=== PATIENT | male | born 1970 | race Two or more races ===

== ENCOUNTER 2016-10-27 14:32 | Inpatient (IN) | payer OTHER ==
[2016-10-27 16:18] VITALS: BMI 31.9
--- NOTE | 2016-10-27 18:00 | HP ---
CIWA Score - CIWA Score Nausea/Vomitin Muscle Tremors: 3 Anxiety: 3 Agitation: 3 Paroxysmal Sweats: 1-Minimal Palms Moist Orientation: 0-Oriented Tacttile Disturbances: 2-Mild Itch/Numbness/Burn Auditory Disturbances: 2-Mild Harshness/Frighten Visual Disturbances: 2-Mild Sensitivity Headache: 2-Mild CIWA-Ar Total Score: 21 Admission ROS BHS - HPI Chief Complaint: i need help to stop drinking alcohol,xanax,heroin abused Allergies/Adverse Reactions: Allergies Allergy/AdvReac Type Severity Reaction Status Date / Time No Known Allergies Allergy Verified 10/27/16 17:49 History of Present Illness: this 46 years old male with alcohol,xanax dependence,withdrawal symptom,last detox 06/05 [facility] mmtp type 1 dm htn asthma postitve ppd related multiple admissions to detox longest period of sobriety 10 years Exam Limitations: No Limitations - Ebola screening Have you traveled outside of the country in the last 21 days: No Have you been sick,other than usual withdrawal symptoms: No - Review of Systems Constitutional: Loss of Appetite, Malaise, Night Sweats, Changes in sleep EENT: reports: Nose Congestion Respiratory: reports: No Symptoms reported Cardiac: reports: Palpitations GI: reports: Nausea, Poor Appetite, Abdominal cramping : reports: No Symptoms Reported Musculoskeletal: reports: Back Pain, Joint Pain, Muscle Pain Integumentary: reports: Dryness Neuro: reports: Headache, Tremors Endocrine: reports: No Symptoms Reported Hematology: reports: No Symptoms Reported Psychiatric: reports: Agitated, Anxious, other (bipolar disorder) Patient History - Patient Medical History Hx Anemia: No Hx Asthma: Yes (on albuterol inhaler) Hx Chronic Obstructive Pulmonary Disease (COPD): No Hx Cancer: No Hx Cardiac Disorders: No Hx Congestive Heart Failure: No Hx Hypertension: No Hx Hypercholesterolemia: No Hx Pacemaker: No HX Cerebrovascular Accident: No Hx Seizures: No Hx Dementia: No Hx Diabetes: Yes (tyoe 1 dm) Hx Gastrointestinal Disorders: No Hx Liver Disease: No Hx Genitourinary Disorders: No Hx Sexually Transmitted Disorders: No Hx Renal Disease (ESRD): No Hx Thyroid Disease: No Hx Human Immunodeficiency Virus (HIV): No (last 06/05 negative) Hx Hepatitis C: No Hx Depression: No Hx Suicide Attempt: Yes (16 years old) Hx Bipolar Disorder: Yes Hx Schizophrenia: No Other Medical History: no suicidal,no homicidal - Patient Surgical History Past Surgical History: Yes Hx Neurologic Surgery: No Hx Cataract Extraction: No Hx Cardiac Surgery: No Hx Lung Surgery: No Hx Breast Surgery: No Hx Breast Biopsy: No Hx Abdominal Surgery: No Hx Appendectomy: No Hx Cholecystectomy: No Hx Genitourinary Surgery: No Hx Orthopedic Surgery: Yes (left knee in 2010) Anesthesia Reaction: No - PPD History Previous Implant?: Yes Documented Results: Positive w/proof PPD to be Administered?: No - Smoking Cessation Smoking history: Former smoker Have you smoked in the past 12 months: No Aproximately how many cigarettes per day: 0 If you are a former smoker, when did you quit?: 2011 Cigars Per Day: 0 Hx Chewing Tobacco Use: No Initiated information on smoking cessation: Yes 'Breaking Loose' booklet given: 10/27/16 - Substance & Tx. History Hx Alcohol Use: Yes Hx Substance Use: Yes Substance Use Type: Alcohol, Tranquilizers Hx Substance Use Treatment: Yes (last [facility] in 06/05) - Substances Abused Alcohol Route: Oral Frequency: Daily Amount used: 1 pint dottie or vodka Age of first use: 11 Date of Last Use: 10/26/16 Alprazolam (Xanax) Route: Oral Frequency: Daily Amount used: 4mg Age of first use: 11 Date of Last Use: 10/26/16 Heroin Route: Inhalation Frequency: Daily Amount used: 10 bags Age of first use: 11 Date of Last Use: 10/26/16 Family Disease History - Family Disease History Family Disease History: Diabetes: Grandparent, Brother, Other: Father (hiv ), Mother (hiv ) Admission Physical Exam S - Vital Signs Vital Signs: Vital Signs - 24 hr 10/27/16 16:16 Temperature 97.1 F L Pulse Rate 92 H Respiratory 20 Rate Blood Pressure 159/108 - Physical General Appearance: Yes: Moderate Distress, Tremorous, Irritable, Sweating, Anxious HEENTM: Yes: Nasal Congestion, Rhinorrhea Respiratory: Yes: Lungs Clear Neck: Yes: Within Normal Limits Breast: Yes: Within Normal Limits Cardiology: Yes: Within Normal Limits, Regular Rhythm, Regular Rate, S1, S2 Abdominal: Yes: Within Normal Limits, Normal Bowel Sounds, Non Tender, Flat, Soft Genitourinary: Yes: Within Normal Limits Back: Yes: Muscle Spasm Musculoskeletal: Yes: Back pain, Muscle Pain Extremities: Yes: Tremors 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, Fully Oriented, Alert, Motor Strength 5/5 Integumentary: Yes: Dry Lymphatic: Yes: Within Normal Limits - Diagnostic (1) Alcohol dependence with uncomplicated withdrawal Current Visit: No Status: Acute (2) Asthma Current Visit: No Status: Chronic Qualifiers: Asthma severity: mild intermittent Asthma complication type: uncomplicated Qualified Code(s): J45.20 - Mild intermittent asthma, uncomplicated (3) Methadone maintenance therapy patient Current Visit: No Status: Chronic Comment: 160 mg daily last dose 06/03/16 verification pending (4) Hypertension Current Visit: Yes Status: Acute (5) Positive PPD, treated Current Visit: Yes Status: Acute Cleared for Admission S - Detox or Rehab [facility] Level of Care: Medically Managed Detox Regimen/Protocol: Librium S Breath Alcohol Content Breath Alcohol Content: 0 Urine Drug Screen - Results Drug Screen Negative: Yes Urine Drug Screen Results: CELESTINA-Cocaine, OPI-Opiates, MTD-Methadone
[2016-10-27] MEDS ORDERED: ACETAMINOPHEN 325 MG TABLET (FP) PO PRN (18:09)
[2016-10-27] MEDS ORDERED: LOPERAMIDE HCL 2 MG CAPSULE PO PRN (18:09)
[2016-10-27] MEDS ORDERED: MENTHOL/PHENOL 1 EACH UD MM PRN (18:09)
[2016-10-27] MEDS ORDERED: MAGNESIUM CITRATE 300 ML BOTTLE PO PRN (18:09)
[2016-10-27] MEDS ORDERED: MAG HYDROX/AL HYDROX/SIMETH 30 ML UNIT-DOSE CUP PO PRN (18:09)
[2016-10-27] MEDS ORDERED: MAGNESIUM HYDROX 2400MG/30ML ORAL SUSPENSION 30 ML CUP PO PRN (18:09)
[2016-10-27] MEDS ORDERED: chlordiazePOXIDE HCL 25 MG CAPSULE PO PRN (18:09)
[2016-10-27] MEDS ORDERED: P-EPHED 60MG/TRIPROLIDI 2.5MG TABLET PO PRN (18:09)
[2016-10-27] MEDS ORDERED: hydrOXYzine PAMOATE 50 MG CAPSULE (FP) PO PRN (18:09)
[2016-10-27] MEDS ORDERED: guaiFENesin/D-METHORPHAN HB 10 ML UNIT-DOSE CUPS PO PRN (18:09)
[2016-10-27] MEDS ORDERED: ALBUTEROL SO4 6.7 GM HFA INHALER IH PRN (18:14)
[2016-10-27] MEDS ORDERED: HYDROCHLOROTHIAZIDE 25 MG TABLET (FP) PO SCH (18:15)
[2016-10-27] MEDS ORDERED: chlordiazePOXIDE HCL 25 MG CAPSULE PO ONE (20:30)
[2016-10-27] MEDS ORDERED: diphenhydrAMINE HCL 50 MG CAPSULE PO PRN (22:00)
[2016-10-27] MEDS ORDERED: chlordiazePOXIDE HCL 25 MG CAPSULE PO SCH (23:00)
[2016-10-28] MEDS ORDERED: cloNIDine HCL 0.1 MG TABLET PO ONE (00:59)
[2016-10-28] MEDS ORDERED: chlordiazePOXIDE HCL 25 MG CAPSULE PO PRN (00:59)
[2016-10-28] MEDS: THIAMINE HCL 100 MG TABLET (FP) PO SCH ×2 (01:43→21:55)
[2016-10-28] MEDS: INSULIN (NOVOLOG) ASPART 100 UNITS/ML 10ML VIAL SQ SCH ×5 (01:44→21:55)
[2016-10-28] MEDS ORDERED: INSULIN (NOVOLOG) ASPART 100 UNITS/ML 10ML VIAL SQ ONE (01:48)
[2016-10-28] MEDS: chlordiazePOXIDE HCL 25 MG CAPSULE PO SCH ×4 (05:30→23:01)
[2016-10-28] MEDS ORDERED: PATIENT'S OWN MEDICATION (NON-FORMULARY) (Insulin Aspart Prot/Insuln Asp [Novolog Mix 70-3 SQ SCH ×2 (07:00→16:30)
[2016-10-28] MEDS ORDERED: INSULIN (NOVOLOG) ASPART 100 UNITS/ML 10ML VIAL ONE ×4 (07:23→21:21)
[2016-10-28] MEDS: INSULIN (NOVOLOG MIX 70/30) 100 UNITS/ML MDV SQ SCH ×2 (07:27→17:26)
--- NOTE | 2016-10-28 10:16 | CONSULT ---
[facility] Psychiatric Consult - Data Date of interview: 10/28/16 Admission source: [facility] Identifying data: Readmission to [facility] for this 46 y/o male seeking detox treatment [address] for alcohol,benzodiazepine (xanax),cocaine and opioid dependence.Patient is a ,a father of one,homeless,unemployed and supported on welfare. Substance Abuse History: Smoking Cessation. Smoking history: Former smoker. Have you smoked in the past 12 months: No. Aproximately how many cigarettes per day: 0. If you are a former smoker, when did you quit?: 2011. Cigars Per Day: 0. Hx Chewing Tobacco Use: No. Initiated information on smoking cessation : Yes. 'Breaking Loose' booklet given: 10/27/16. - Substance & Tx. History. Hx Alcohol Use: Yes. Hx Substance Use: Yes. Substance Use Type: Alcohol, Tranquilizers. Hx Substance Use Treatment: Yes (last [facility] in 06/05). - Substances Abused. Alcohol. Route: Oral. Frequency: Daily. Amount used: 1 pint dottie or vodka. Age of first use: 11. Date of Last Use: 10/26/16. Alprazolam (Xanax). Route: Oral. Frequency: Daily. Amount used: 4mg. Age of first use: 11. Date of Last Use: 10/26/16. Heroin. Route: Inhalation. Frequency: Daily. Amount used: 10 bags. Age of first use: 11. Date of Last Use: 10/26/16. Confirmed by the patient in this interview. Medical History: Significant for diabetes mellitus,hypertension,COPD and bronchial asthma. Psychiatric History: History of 4-6 psychiatric hospitalizations.Known to [facility] and other facilities in [facility] (during incarceration at [facility]).Diagnosed with MDD and Bipolar Disorder.Mr Maravilla admits to not having any contact with [employer] care providers.He states that he is prescribed zoloft and elavil by primary care physicians.Emergency room settings are sometimes utilized to obtain refills.No recall of the doses of his medications.Patient has no recollection of date of his last medication intake.Review of Pharmacy Claims (Home medications) shows that his most recent refill for seroquel and sertraline was around 05/2016.Mr Maravilla is not a reliable historian.Noted previous report of a remote history of suicide attempts via hanging (1995) and self-mutilation.Still on methadone maintenance ( 160 mg/day). Physical/Sexual Abuse/Trauma History: Patient denies history of sexual abuse. Additional Comment: Urine Drug Screen Results: CELESTINA-Cocaine, OPI-Opiates, MTD- Methadone.Noted. Mental Status Exam - Mental Status Exam Alert and Oriented to: Time, Place, Person Cognitive Function: Good Patient Appearance: Unkempt, Disheveled Mood: Nervous, Withdrawn, Irritable Affect: Mood Congruent Patient Behavior: Sedated (moderately), Fatigued, Cooperative (superficially) Speech Pattern: Delayed, Slurred Voice Loudness: Moderately Soft/Quiet Thought Process: Goal Oriented Thought Disorder: Not Present Hallucinations: Denies Suicidal Ideation: Denies Homicidal Ideation: Denies Insight/Judgement: Poor Sleep: Fair Appetite: Good Muscle strength/Tone: Normal Gait/Station: Normal Psychiatric Findings - Problem List ([place] 1, 2,3) (1) Alcohol dependence with uncomplicated withdrawal Current Visit: Yes Status: Acute (2) Opioid dependence on agonist therapy Current Visit: Yes Status: Acute (3) Cocaine dependence Current Visit: No Status: Acute (4) Substance induced mood disorder Current Visit: Yes Status: Acute (5) MDD (major depressive disorder) Current Visit: Yes Status: Chronic Comment: Historical diagnosis. (6) Hypertension Current Visit: Yes Status: Acute (7) Positive PPD, treated Current Visit: Yes Status: Chronic (8) Asthma Current Visit: Yes Status: Chronic Qualifiers: Asthma severity: mild intermittent Asthma complication type: uncomplicated Qualified Code(s): J45.20 - Mild intermittent asthma, uncomplicated (9) Diabetes mellitus, type II, insulin dependent Current Visit: Yes Status: Chronic - Initial Treatment Plan Initial Treatment Plan: Psychoeducation.Detoxification.Medications :zoloft 50 mg po daily + seroquel 25 mg po hs.Side effects/benefits discussed with the patient.He agrees to follow this plan of care.Observation.
[2016-10-28] MEDS: METHADONE HCL 40 MG DISPERSABLE TABLET PO SCH (10:42)
[2016-10-28] MEDS: HYDROCHLOROTHIAZIDE 25 MG TABLET (FP) PO SCH (10:43)
[2016-10-28] MEDS: PRENATAL VITAMINS W/ FOLIC ACID TABLET (FP) PO SCH (10:43)
[2016-10-28] MEDS: IBUPROFEN 400 MG TABLET (FP) PO PRN (11:09)
--- NOTE | 2016-10-28 13:36 | EKG ---
Test Reason : Blood Pressure : / mmHG Vent. Rate : 094 BPM Atrial Rate : 094 BPM P-R Int : 176 ms QRS Dur : 116 ms QT Int : 390 ms P-R-T Axes : 070 065 053 degrees QTc Int : 487 ms NORMAL SINUS RHYTHM INCOMPLETE RIGHT BUNDLE BRANCH BLOCK PROLONGED QT ABNORMAL ECG NO PREVIOUS ECGS AVAILABLE Confirmed by TAMIKA DOYLE MD ([id number]) on 10/28/2016 1:36:06 PM Referred By: Confirmed By:TAMIKA DOYLE MD
--- NOTE | 2016-10-28 18:01 | PN ---
S CIWA - CIWA Score Nausea/Vomitin-Mild Nausea/No Vomiting Muscle Tremors: 4-Moderate,w/Arms Extend Anxiety: 4-Mod. Anxious/Guarded Agitation: 3 Paroxysmal Sweats: 3 Orientation: 0-Oriented Tacttile Disturbances: 0-None Auditory Disturbances: 0-None Visual Disturbances: 0-None Headache: 0-None Present CIWA-Ar Total Score: 15 BHS Progress Note (SOAP) Subjective: ANXIETY,TREMORS,INTERRUPTED SLEEP,RESTLESS Objective: 10/28/16 17:59 Vital Signs - 8 hr 10/28/16 10/28/16 13:46 17:34 Temperature 97.2 F L 96.6 F L Pulse Rate 73 70 Respiratory 18 18 Rate Blood Pressure 158/91 142/81 Laboratory Tests 10/27/16 10/28/16 10/28/16 18:03 01:39 07:16 POC Glucometer 406 409 451 10/28/16 10/28/16 11:13 16:12 POC Glucometer 301 378 Assessment: 10/28/16 18:00 WITHDRAWAL SX Plan: CONTINUE DETOX
[2016-10-28 19:17] LABS: URINE APPEARANCE CLEAR; URINE BILIRUBIN NEGATIVE (NEGATIVE); URINE BLOOD NEGATIVE (NEGATIVE); URINE COLOR LTYELLOW; URINE GLUCOSE (UA) 3+ (NEGATIVE); URINE KETONE NEGATIVE (NEGATIVE); URINE LEUK ESTERASE NEGATIVE (NEGATIVE); URINE NITRITE NEGATIVE (NEGATIVE); URINE PROTEIN NEGATIVE (NEGATIVE); URINE UROBILINOGEN NEGATIVE E.U./dl (0.2-1.0)
[2016-10-28] MEDS ORDERED: chlordiazePOXIDE HCL 25 MG CAPSULE PO SCH (23:00)
[2016-10-29] MEDS: chlordiazePOXIDE HCL 25 MG CAPSULE PO SCH ×4 (05:48→22:45)
[2016-10-29] MEDS: METHADONE HCL 40 MG DISPERSABLE TABLET PO SCH ×2 (07:02→10:52)
[2016-10-29] MEDS ORDERED: INSULIN (NOVOLOG) ASPART 100 UNITS/ML 10ML VIAL ONE ×3 (07:29→16:59)
[2016-10-29] MEDS: INSULIN (NOVOLOG MIX 70/30) 100 UNITS/ML MDV SQ SCH ×2 (07:37→18:02)
[2016-10-29] MEDS: INSULIN (NOVOLOG) ASPART 100 UNITS/ML 10ML VIAL SQ SCH ×4 (07:37→23:01)
[2016-10-29 09:34] LABS: MCH 26.7 pg (25.7-33.7); MCHC 32.4 g/dl (32.0-35.9); MEAN CELL VOLUME 82.5 fl (80-96); MEAN PLT VOLUME 8.8 fl (7.5-11.1); PLATELET COUNT 149 K/MM3 (134-434); RDW 14.6 % (11.9-15.9); WHITE BLOOD COUNT 5.7 K/mm3 (4.0-10.0)
[2016-10-29 10:09] LABS: ALBUMIN 3.8 g/dl (3.4-5.0); ALK PHOS 98 U/L (45-117); ANION GAP 9 (8-16); BILIRUBIN,TOTAL 0.4 mg/dL (0.2-1.0); CALCIUM 9.3 mg/dL (8.5-10.1); CO2 29 mmol/L (21-32); CREATININE 1.1 mg/dL (0.7-1.3); SGOT/AST 13 U/L (15-37); SGPT/ALT 42 U/L (12-78)
[2016-10-29 10:45] LABS: GLUCOSE,RANDOM 486 mg/dL (74-106)
[2016-10-29] MEDS: HYDROCHLOROTHIAZIDE 25 MG TABLET (FP) PO SCH (10:52)
[2016-10-29] MEDS: PRENATAL VITAMINS W/ FOLIC ACID TABLET (FP) PO SCH (10:52)
--- NOTE | 2016-10-29 11:08 | PN ---
[facility] CIWA - CIWA Score Nausea/Vomitin-Mild Nausea/No Vomiting Muscle Tremors: 4-Moderate,w/Arms Extend Anxiety: 3 Agitation: 3 Paroxysmal Sweats: 3 Orientation: 0-Oriented Tacttile Disturbances: 1-Very Mild Itch/Numbness Auditory Disturbances: 0-None Visual Disturbances: 0-None Headache: 0-None Present CIWA-Ar Total Score: 15 BHS Progress Note (SOAP) Subjective: SWEATING,ANXIETY,TREMORS,INTERRUPTED SLEEP,RESTLESS Objective: 10/29/16 11:03 Vital Signs - 8 hr 10/29/16 10/29/16 10/29/16 03:30 07:03 10:14 Temperature 97.3 F L 96.8 F L Pulse Rate 78 82 Respiratory 20 20 20 Rate Blood Pressure 159/95 139/78 Laboratory Tests 10/27/16 10/28/16 10/28/16 18:03 01:39 07:16 WBC RBC Hgb Hct MCV MCHC RDW Plt Count MPV Sodium Potassium Chloride Carbon Dioxide Anion Gap BUN Creatinine Creat Clearance w eGFR POC Glucometer 406 409 451 Random Glucose Calcium Total Bilirubin AST ALT Alkaline Phosphatase Total Protein Albumin Urine Color Urine Appearance Urine pH Ur Specific [place] Urine Protein Urine Glucose (UA) Urine Ketones Urine Blood Urine Nitrite Urine Bilirubin Urine Urobilinogen Ur Leukocyte Esterase 10/28/16 10/28/16 10/28/16 11:13 12:00 16:12 WBC RBC Hgb Hct MCV MCHC RDW Plt Count MPV Sodium Potassium Chloride Carbon Dioxide Anion Gap BUN Creatinine Creat Clearance w eGFR POC Glucometer 301 378 Random Glucose Calcium Total Bilirubin AST ALT Alkaline Phosphatase Total Protein Albumin Urine Color Ltyellow Urine Appearance Clear Urine pH 5.0 Ur Specific [place] 1.028 Urine Protein Negative Urine Glucose (UA) 3+ H Urine Ketones Negative Urine Blood Negative Urine Nitrite Negative Urine Bilirubin Negative Urine Urobilinogen Negative Ur Leukocyte Esterase Negative 10/28/16 10/29/16 10/29/16 21:02 05:46 06:30 WBC 5.7 RBC 4.86 Hgb 13.0 Hct 40.1 MCV 82.5 MCHC 32.4 RDW 14.6 Plt Count 149 MPV 8.8 Sodium Potassium Chloride Carbon Dioxide Anion Gap BUN Creatinine Creat Clearance w eGFR POC Glucometer 370 504 Random Glucose Calcium Total Bilirubin AST ALT Alkaline Phosphatase Total Protein Albumin Urine Color Urine Appearance Urine pH Ur Specific [place] Urine Protein Urine Glucose (UA) Urine Ketones Urine Blood Urine Nitrite Urine Bilirubin Urine Urobilinogen Ur Leukocyte Esterase 10/29/16 06:30 WBC RBC Hgb Hct MCV MCHC RDW Plt Count MPV Sodium 134 L Potassium 4.4 Chloride 96 L Carbon Dioxide 29 Anion Gap 9 BUN 24 H Creatinine 1.1 Creat Clearance w eGFR > 60 POC Glucometer Random Glucose 486 H* Calcium 9.3 Total Bilirubin 0.4 AST 13 L ALT 42 D Alkaline Phosphatase 98 Total Protein 7.0 Albumin 3.8 Urine Color Urine Appearance Urine pH Ur Specific [place] Urine Protein Urine Glucose (UA) Urine Ketones Urine Blood Urine Nitrite Urine Bilirubin Urine Urobilinogen Ur Leukocyte Esterase LABS NOTED Assessment: 10/29/16 11:08 WITHDRAWAL SX. Plan: CONTINUE DETOX
[2016-10-29 12:09] LABS: HIV 1 & 2 AB NEGATIVE; HIV 1 AGp24 NEGATIVE
[2016-10-29] MEDS ORDERED: CYCLOBENZAPRINE HCL 10 MG TABLET (FP) PO ONE (18:26)
--- NOTE | 2016-10-29 18:27 | PN ---
S Progress Note Note: received nurse call patient has muscle cramp trail of flexeril 10 mg x 1 continue detox
[2016-10-29] MEDS ORDERED: INSULIN (NOVOLOG) ASPART 100 UNITS/ML 10ML VIAL SQ ONE (21:09)
[2016-10-29] MEDS: THIAMINE HCL 100 MG TABLET (FP) PO SCH (22:45)
[2016-10-29] MEDS ORDERED: chlordiazePOXIDE 5 MG CAPSULE PO SCH (23:00)
[2016-10-30] MEDS: chlordiazePOXIDE 5 MG CAPSULE PO SCH ×4 (06:18→22:03)
[2016-10-30] MEDS ORDERED: INSULIN (NOVOLOG) ASPART 100 UNITS/ML 10ML VIAL ONE ×3 (07:35→17:18)
[2016-10-30] MEDS: INSULIN (NOVOLOG MIX 70/30) 100 UNITS/ML MDV SQ SCH ×2 (07:44→17:26)
[2016-10-30] MEDS: INSULIN (NOVOLOG) ASPART 100 UNITS/ML 10ML VIAL SQ SCH ×4 (07:44→22:04)
[2016-10-30] MEDS: PRENATAL VITAMINS W/ FOLIC ACID TABLET (FP) PO SCH (10:26)
[2016-10-30] MEDS: HYDROCHLOROTHIAZIDE 25 MG TABLET (FP) PO SCH (10:26)
[2016-10-30] MEDS: METHADONE HCL 40 MG DISPERSABLE TABLET PO SCH (10:26)
--- NOTE | 2016-10-30 11:01 | PN ---
BHS Progress Note (SOAP) Subjective: sweating,interrupted sleep,restless Objective: 10/30/16 11:00 Vital Signs - 8 hr 10/30/16 10:09 Temperature 97 F L Pulse Rate 86 Respiratory 20 Rate Blood Pressure 153/89 Laboratory Last Values WBC 5.7 K/mm3 (4.0-10.0) 10/29/16 06:30 RBC 4.86 M/mm3 (4.00-5.60) 10/29/16 06:30 Hgb 13.0 GM/dL (11.7-16.9) 10/29/16 06:30 Hct 40.1 % (35.4-49) 10/29/16 06:30 MCV 82.5 fl (80-96) 10/29/16 06:30 MCHC 32.4 g/dl (32.0-35.9) 10/29/16 06:30 RDW 14.6 % (11.9-15.9) 10/29/16 06:30 Plt Count 149 K/MM3 (134-434) 10/29/16 06:30 MPV 8.8 fl (7.5-11.1) 10/29/16 06:30 Sodium 134 mmol/L (136-145) L 10/29/16 06:30 Potassium 4.4 mmol/L (3.5-5.1) 10/29/16 06:30 Chloride 96 mmol/L (98-107) L 10/29/16 06:30 Carbon Dioxide 29 mmol/L (21-32) 10/29/16 06:30 Anion Gap 9 (8-16) 10/29/16 06:30 BUN 24 mg/dL (7-18) H 10/29/16 06:30 Creatinine 1.1 mg/dL (0.7-1.3) 10/29/16 06:30 Creat Clearance w eGFR > 60 (>60) 10/29/16 06:30 POC Glucometer 473 UNITS (()) 10/30/16 07:30 Random Glucose 486 mg/dL (74-106) H* 10/29/16 06:30 Calcium 9.3 mg/dL (8.5-10.1) 10/29/16 06:30 Total Bilirubin 0.4 mg/dL (0.2-1.0) 10/29/16 06:30 AST 13 U/L (15-37) L 10/29/16 06:30 ALT 42 U/L (12-78) D 10/29/16 06:30 Alkaline Phosphatase 98 U/L (45-117) 10/29/16 06:30 Total Protein 7.0 g/dl (6.4-8.2) 10/29/16 06:30 Albumin 3.8 g/dl (3.4-5.0) 10/29/16 06:30 Urine Color Ltyellow 10/28/16 12:00 Urine Appearance Clear 10/28/16 12:00 Urine pH 5.0 (5.0-8.0) 10/28/16 12:00 Ur Specific [place] 1.028 (1.001-1.035) 10/28/16 12:00 Urine Protein Negative (NEGATIVE) 10/28/16 12:00 Urine Glucose (UA) 3+ (NEGATIVE) H 10/28/16 12:00 Urine Ketones Negative (NEGATIVE) 10/28/16 12:00 Urine Blood Negative (NEGATIVE) 10/28/16 12:00 Urine Nitrite Negative (NEGATIVE) 10/28/16 12:00 Urine Bilirubin Negative (NEGATIVE) 10/28/16 12:00 Urine Urobilinogen Negative E.U./dl (0.2-1.0) 10/28/16 12:00 Ur Leukocyte Esterase Negative (NEGATIVE) 10/28/16 12:00 RPR Titer Nonreactive (NONREACTIVE) 10/29/16 06:30 HIV 1&2 Antibody Screen Negative 10/29/16 06:30 HIV P24 Antigen Negative 10/29/16 06:30 labs noted Assessment: 10/30/16 11:01 withdrawal sx. Plan: continue detox
[2016-10-30] MEDS: IBUPROFEN 400 MG TABLET (FP) PO PRN (17:54)
[2016-10-30] MEDS: CYCLOBENZAPRINE HCL 10 MG TABLET (FP) PO PRN (17:55)
[2016-10-30] MEDS: THIAMINE HCL 100 MG TABLET (FP) PO SCH (22:03)
[2016-10-30] MEDS ORDERED: chlordiazePOXIDE HCL 10 MG CAPSULE PO SCH (23:00)
[2016-10-31] MEDS: chlordiazePOXIDE HCL 10 MG CAPSULE PO SCH ×4 (06:14→22:26)
[2016-10-31] MEDS ORDERED: INSULIN (NOVOLOG) ASPART 100 UNITS/ML 10ML VIAL ONE ×4 (07:39→21:17)
[2016-10-31] MEDS: INSULIN (NOVOLOG) ASPART 100 UNITS/ML 10ML VIAL SQ SCH ×4 (07:45→21:50)
[2016-10-31] MEDS: INSULIN (NOVOLOG MIX 70/30) 100 UNITS/ML MDV SQ SCH ×2 (07:45→17:20)
[2016-10-31] MEDS: PRENATAL VITAMINS W/ FOLIC ACID TABLET (FP) PO SCH (10:21)
[2016-10-31] MEDS: METHADONE HCL 40 MG DISPERSABLE TABLET PO SCH (10:26)
[2016-10-31] MEDS: HYDROCHLOROTHIAZIDE 25 MG TABLET (FP) PO SCH (10:26)
--- NOTE | 2016-10-31 10:37 | DS ---
[facility] Detox Discharge Summary Admission Date: 10/28/16 Discharge Date: 10/31/16 - History Present History: Alcohol Dependence, Cocaine Dependence, MMTP Pertinent Past History: DM II Hypertension Asthma +PPD MMTP - Physical Exam Results Vital Signs: Vital Signs Temperature 97.8 F 10/31/16 10:32 Pulse Rate 98 H 10/31/16 10:32 Respiratory Rate 18 10/31/16 10:32 Blood Pressure 147/101 10/31/16 10:32 O2 Sat by Pulse Oximetry (%) Laboratory Last Values WBC 5.7 K/mm3 (4.0-10.0) 10/29/16 06:30 RBC 4.86 M/mm3 (4.00-5.60) 10/29/16 06:30 Hgb 13.0 GM/dL (11.7-16.9) 10/29/16 06:30 Hct 40.1 % (35.4-49) 10/29/16 06:30 MCV 82.5 fl (80-96) 10/29/16 06:30 MCHC 32.4 g/dl (32.0-35.9) 10/29/16 06:30 RDW 14.6 % (11.9-15.9) 10/29/16 06:30 Plt Count 149 K/MM3 (134-434) 10/29/16 06:30 MPV 8.8 fl (7.5-11.1) 10/29/16 06:30 Sodium 134 mmol/L (136-145) L 10/29/16 06:30 Potassium 4.4 mmol/L (3.5-5.1) 10/29/16 06:30 Chloride 96 mmol/L (98-107) L 10/29/16 06:30 Carbon Dioxide 29 mmol/L (21-32) 10/29/16 06:30 Anion Gap 9 (8-16) 10/29/16 06:30 BUN 24 mg/dL (7-18) H 10/29/16 06:30 Creatinine 1.1 mg/dL (0.7-1.3) 10/29/16 06:30 Creat Clearance w eGFR > 60 (>60) 10/29/16 06:30 POC Glucometer 497 UNITS (()) 10/31/16 06:13 Random Glucose 486 mg/dL (74-106) H* 10/29/16 06:30 Calcium 9.3 mg/dL (8.5-10.1) 10/29/16 06:30 Total Bilirubin 0.4 mg/dL (0.2-1.0) 10/29/16 06:30 AST 13 U/L (15-37) L 10/29/16 06:30 ALT 42 U/L (12-78) D 10/29/16 06:30 Alkaline Phosphatase 98 U/L (45-117) 10/29/16 06:30 Total Protein 7.0 g/dl (6.4-8.2) 10/29/16 06:30 Albumin 3.8 g/dl (3.4-5.0) 10/29/16 06:30 Urine Color Ltyellow 10/28/16 12:00 Urine Appearance Clear 10/28/16 12:00 Urine pH 5.0 (5.0-8.0) 10/28/16 12:00 Ur Specific [place] 1.028 (1.001-1.035) 10/28/16 12:00 Urine Protein Negative (NEGATIVE) 10/28/16 12:00 Urine Glucose (UA) 3+ (NEGATIVE) H 10/28/16 12:00 Urine Ketones Negative (NEGATIVE) 10/28/16 12:00 Urine Blood Negative (NEGATIVE) 10/28/16 12:00 Urine Nitrite Negative (NEGATIVE) 10/28/16 12:00 Urine Bilirubin Negative (NEGATIVE) 10/28/16 12:00 Urine Urobilinogen Negative E.U./dl (0.2-1.0) 10/28/16 12:00 Ur Leukocyte Esterase Negative (NEGATIVE) 10/28/16 12:00 RPR Titer Nonreactive (NONREACTIVE) 10/29/16 06:30 HIV 1&2 Antibody Screen Negative 10/29/16 06:30 HIV P24 Antigen Negative 10/29/16 06:30 labs noted Pertinent Admission Physical Exam Findings: Withdrawal Symptoms - Treatment Hospital Course: Detox Protocol Followed, Detoxed Safely, Discharged Condition Good, Rehab Referral Accepted Patient has Accepted a Rehab Referral to: Inpatient Rehab - Medication Discharge Medications: Ambulatory Orders Albuterol Sulfate Inhaler - [Ventolin Hfa Inhaler -] 2 inh PO Q4H PRN 10/27/16 Hydrochlorothiazide [Hctz -] 25 mg PO DAILY 10/27/16 Insulin Aspart Prot/Insuln Asp [Novolog Mix 70-30 Flexpen Syrn] 18 unit SQ ACBK 10/27/16 Insulin Aspart Prot/Insuln Asp [Novolog Mix 70-30 Flexpen Syrn] 20 unit SQ ACDIN 10/27/16 Sertraline HCl [Zoloft -] 50 mg PO DAILY #30 tablet 10/28/16 - Diagnosis (1) Alcohol dependence with uncomplicated withdrawal Current Visit: Yes Status: Acute (2) Hypertension Current Visit: Yes Status: Acute (3) Opioid dependence on agonist therapy Current Visit: Yes Status: Acute (4) Diabetes mellitus, type II, insulin dependent Current Visit: Yes Status: Chronic (5) MDD (major depressive disorder) Current Visit: Yes Status: Acute (6) Positive PPD, treated Current Visit: Yes Status: Chronic (7) Cocaine dependence Current Visit: No Status: Acute (8) Methadone maintenance therapy patient Current Visit: No Status: Chronic - AMA Did Patient Leave Against Medical Advice: No
--- NOTE | 2016-10-31 12:54 | PN ---
[facility] Progress Note Note: Patient decided not to leave to inpatient rehab today. Discharge has been cancelled and patient will be discharged tomorrow.
[2016-10-31] MEDS: CYCLOBENZAPRINE HCL 10 MG TABLET (FP) PO PRN (20:30)
[2016-10-31] MEDS: IBUPROFEN 400 MG TABLET (FP) PO PRN (22:25)
[2016-10-31] MEDS: THIAMINE HCL 100 MG TABLET (FP) PO SCH (22:26)
[2016-11-01] MEDS ORDERED: INSULIN (NOVOLOG) ASPART 100 UNITS/ML 10ML VIAL ONE ×4 (07:36→21:27)
[2016-11-01] MEDS: INSULIN (NOVOLOG) ASPART 100 UNITS/ML 10ML VIAL SQ SCH ×4 (07:39→22:00)
[2016-11-01] MEDS: INSULIN (NOVOLOG MIX 70/30) 100 UNITS/ML MDV SQ SCH ×2 (07:39→16:35)
[2016-11-01] MEDS: PRENATAL VITAMINS W/ FOLIC ACID TABLET (FP) PO SCH (10:18)
[2016-11-01] MEDS: HYDROCHLOROTHIAZIDE 25 MG TABLET (FP) PO SCH (10:19)
[2016-11-01] MEDS: METHADONE HCL 40 MG DISPERSABLE TABLET PO SCH (10:19)
--- NOTE | 2016-11-01 14:35 | PN ---
[facility] Progress Note (SOAP) Subjective: Anxious, stomach cramps, back pain, diarrhea, sweating, chills, interrupted sleep, feels weak but improved today Objective: 11/01/16 14:33 Last Vital Signs Temp Pulse Resp BP Pulse Ox 96.4 F L 88 20 124/80 11/01/16 13:34 11/01/16 13:34 11/01/16 13:34 11/01/16 13:34 Laboratory Tests 10/27/16 10/28/16 10/28/16 18:03 01:39 07:16 WBC RBC Hgb Hct MCV MCHC RDW Plt Count MPV Sodium Potassium Chloride Carbon Dioxide Anion Gap BUN Creatinine Creat Clearance w eGFR POC Glucometer [phone] Random Glucose Calcium Total Bilirubin AST ALT Alkaline Phosphatase Total Protein Albumin Urine Color Urine Appearance Urine pH Ur Specific [place] Urine Protein Urine Glucose (UA) Urine Ketones Urine Blood Urine Nitrite Urine Bilirubin Urine Urobilinogen Ur Leukocyte Esterase RPR Titer HIV 1&2 Antibody Screen HIV P24 Antigen 10/28/16 10/28/16 10/28/16 11:13 12:00 16:12 WBC RBC Hgb Hct MCV MCHC RDW Plt Count MPV Sodium Potassium Chloride Carbon Dioxide Anion Gap BUN Creatinine Creat Clearance w eGFR POC Glucometer 301 378 Random Glucose Calcium Total Bilirubin AST ALT Alkaline Phosphatase Total Protein Albumin Urine Color Ltyellow Urine Appearance Clear Urine pH 5.0 Ur Specific [place] 1.028 Urine Protein Negative Urine Glucose (UA) 3+ H Urine Ketones Negative Urine Blood Negative Urine Nitrite Negative Urine Bilirubin Negative Urine Urobilinogen Negative Ur Leukocyte Esterase Negative RPR Titer HIV 1&2 Antibody Screen HIV P24 Antigen 10/28/16 10/29/16 10/29/16 21:02 05:46 06:30 WBC RBC Hgb Hct MCV MCHC RDW Plt Count MPV Sodium Potassium Chloride Carbon Dioxide Anion Gap BUN Creatinine Creat Clearance w eGFR POC Glucometer 370 504 Random Glucose Calcium Total Bilirubin AST ALT Alkaline Phosphatase Total Protein Albumin Urine Color Urine Appearance Urine pH Ur Specific [place] Urine Protein Urine Glucose (UA) Urine Ketones Urine Blood Urine Nitrite Urine Bilirubin Urine Urobilinogen Ur Leukocyte Esterase RPR Titer HIV 1&2 Antibody Screen Negative HIV P24 Antigen Negative 10/29/16 10/29/16 10/29/16 06:30 06:30 06:30 WBC 5.7 RBC 4.86 Hgb 13.0 Hct 40.1 MCV 82.5 MCHC 32.4 RDW 14.6 Plt Count 149 MPV 8.8 Sodium 134 L Potassium 4.4 Chloride 96 L Carbon Dioxide 29 Anion Gap 9 BUN 24 H Creatinine 1.1 Creat Clearance w eGFR > 60 POC Glucometer Random Glucose 486 H* Calcium 9.3 Total Bilirubin 0.4 AST 13 L ALT 42 D Alkaline Phosphatase 98 Total Protein 7.0 Albumin 3.8 Urine Color Urine Appearance Urine pH Ur Specific [place] Urine Protein Urine Glucose (UA) Urine Ketones Urine Blood Urine Nitrite Urine Bilirubin Urine Urobilinogen Ur Leukocyte Esterase RPR Titer Nonreactive HIV 1&2 Antibody Screen HIV P24 Antigen 10/29/16 10/29/16 10/29/16 11:20 16:21 20:59 WBC RBC Hgb Hct MCV MCHC RDW Plt Count MPV Sodium Potassium Chloride Carbon Dioxide Anion Gap BUN Creatinine Creat Clearance w eGFR POC Glucometer 472 436 542 Random Glucose Calcium Total Bilirubin AST ALT Alkaline Phosphatase Total Protein Albumin Urine Color Urine Appearance Urine pH Ur Specific [place] Urine Protein Urine Glucose (UA) Urine Ketones Urine Blood Urine Nitrite Urine Bilirubin Urine Urobilinogen Ur Leukocyte Esterase RPR Titer HIV 1&2 Antibody Screen HIV P24 Antigen 10/30/16 10/30/16 10/31/16 07:30 11:32 06:13 WBC RBC Hgb Hct MCV MCHC RDW Plt Count MPV Sodium Potassium Chloride Carbon Dioxide Anion Gap BUN Creatinine Creat Clearance w eGFR POC Glucometer 473 547 497 Random Glucose Calcium Total Bilirubin AST ALT Alkaline Phosphatase Total Protein Albumin Urine Color Urine Appearance Urine pH Ur Specific [place] Urine Protein Urine Glucose (UA) Urine Ketones Urine Blood Urine Nitrite Urine Bilirubin Urine Urobilinogen Ur Leukocyte Esterase RPR Titer HIV 1&2 Antibody Screen HIV P24 Antigen 10/31/16 10/31/16 11/01/16 10:56 21:11 06:06 WBC RBC Hgb Hct MCV MCHC RDW Plt Count MPV Sodium Potassium Chloride Carbon Dioxide Anion Gap BUN Creatinine Creat Clearance w eGFR POC Glucometer 437 369 450 Random Glucose Calcium Total Bilirubin AST ALT Alkaline Phosphatase Total Protein Albumin Urine Color Urine Appearance Urine pH Ur Specific [place] Urine Protein Urine Glucose (UA) Urine Ketones Urine Blood Urine Nitrite Urine Bilirubin Urine Urobilinogen Ur Leukocyte Esterase RPR Titer HIV 1&2 Antibody Screen HIV P24 Antigen Labs noted Assessment: 11/01/16 14:34 Withdrawal symptoms Plan: Continue detox, encouraged to drink lots of water
[2016-11-01] MEDS: CYCLOBENZAPRINE HCL 10 MG TABLET (FP) PO PRN (16:33)
[2016-11-01] MEDS: IBUPROFEN 400 MG TABLET (FP) PO PRN (22:52)
[2016-11-01] MEDS: THIAMINE HCL 100 MG TABLET (FP) PO SCH (22:58)
[2016-11-02] MEDS ORDERED: INSULIN (NOVOLOG) ASPART 100 UNITS/ML 10ML VIAL ONE (07:00)
[2016-11-02] MEDS: INSULIN (NOVOLOG) ASPART 100 UNITS/ML 10ML VIAL SQ SCH (07:05)
[2016-11-02] MEDS: INSULIN (NOVOLOG MIX 70/30) 100 UNITS/ML MDV SQ SCH (07:05)
[2016-11-02] MEDS: METHADONE HCL 40 MG DISPERSABLE TABLET PO SCH (09:12)
[2016-11-02] MEDS: PRENATAL VITAMINS W/ FOLIC ACID TABLET (FP) PO SCH (09:12)
[2016-11-02] MEDS: HYDROCHLOROTHIAZIDE 25 MG TABLET (FP) PO SCH (09:12)
[2016-11-02 10:18] VITALS: BP 129/82; PULSE 85; TEMP 97.3
--- NOTE | 2016-11-02 10:42 | DS ---
[facility] Detox Discharge Summary Admission Date: 10/28/16 Discharge Date: 11/02/16 - History Present History: Alcohol Dependence, Cocaine Dependence, MMTP Pertinent Past History: asthma type ii dm htn - Physical Exam Results Vital Signs: Vital Signs Temperature 97.3 F L 11/02/16 10:18 Pulse Rate 85 11/02/16 10:18 Respiratory Rate 20 11/02/16 10:18 Blood Pressure 129/82 11/02/16 10:18 O2 Sat by Pulse Oximetry (%) Pertinent Admission Physical Exam Findings: withdrawal sx. Laboratory Last Values WBC 5.7 K/mm3 (4.0-10.0) 10/29/16 06:30 RBC 4.86 M/mm3 (4.00-5.60) 10/29/16 06:30 Hgb 13.0 GM/dL (11.7-16.9) 10/29/16 06:30 Hct 40.1 % (35.4-49) 10/29/16 06:30 MCV 82.5 fl (80-96) 10/29/16 06:30 MCHC 32.4 g/dl (32.0-35.9) 10/29/16 06:30 RDW 14.6 % (11.9-15.9) 10/29/16 06:30 Plt Count 149 K/MM3 (134-434) 10/29/16 06:30 MPV 8.8 fl (7.5-11.1) 10/29/16 06:30 Sodium 134 mmol/L (136-145) L 10/29/16 06:30 Potassium 4.4 mmol/L (3.5-5.1) 10/29/16 06:30 Chloride 96 mmol/L (98-107) L 10/29/16 06:30 Carbon Dioxide 29 mmol/L (21-32) 10/29/16 06:30 Anion Gap 9 (8-16) 10/29/16 06:30 BUN 24 mg/dL (7-18) H 10/29/16 06:30 Creatinine 1.1 mg/dL (0.7-1.3) 10/29/16 06:30 Creat Clearance w eGFR > 60 (>60) 10/29/16 06:30 POC Glucometer 450 UNITS (()) 11/01/16 06:06 Random Glucose 486 mg/dL (74-106) H* 10/29/16 06:30 Calcium 9.3 mg/dL (8.5-10.1) 10/29/16 06:30 Total Bilirubin 0.4 mg/dL (0.2-1.0) 10/29/16 06:30 AST 13 U/L (15-37) L 10/29/16 06:30 ALT 42 U/L (12-78) D 10/29/16 06:30 Alkaline Phosphatase 98 U/L (45-117) 10/29/16 06:30 Total Protein 7.0 g/dl (6.4-8.2) 10/29/16 06:30 Albumin 3.8 g/dl (3.4-5.0) 10/29/16 06:30 Urine Color Ltyellow 10/28/16 12:00 Urine Appearance Clear 10/28/16 12:00 Urine pH 5.0 (5.0-8.0) 10/28/16 12:00 Ur Specific [place] 1.028 (1.001-1.035) 10/28/16 12:00 Urine Protein Negative (NEGATIVE) 10/28/16 12:00 Urine Glucose (UA) 3+ (NEGATIVE) H 10/28/16 12:00 Urine Ketones Negative (NEGATIVE) 10/28/16 12:00 Urine Blood Negative (NEGATIVE) 10/28/16 12:00 Urine Nitrite Negative (NEGATIVE) 10/28/16 12:00 Urine Bilirubin Negative (NEGATIVE) 10/28/16 12:00 Urine Urobilinogen Negative E.U./dl (0.2-1.0) 10/28/16 12:00 Ur Leukocyte Esterase Negative (NEGATIVE) 10/28/16 12:00 RPR Titer Nonreactive (NONREACTIVE) 10/29/16 06:30 HIV 1&2 Antibody Screen Negative 10/29/16 06:30 HIV P24 Antigen Negative 10/29/16 06:30 labs noted - Treatment Hospital Course: Detox Protocol Followed, Detoxed Safely, Responded well, Discharged Condition Good, Rehab Referral Accepted - Medication Discharge Medications: Ambulatory Orders Albuterol Sulfate Inhaler - [Ventolin Hfa Inhaler -] 2 inh PO Q4H PRN 10/27/16 Hydrochlorothiazide [Hctz -] 25 mg PO DAILY 10/27/16 Insulin Aspart Prot/Insuln Asp [Novolog Mix 70-30 Flexpen Syrn] 18 unit SQ ACBK 10/27/16 Insulin Aspart Prot/Insuln Asp [Novolog Mix 70-30 Flexpen Syrn] 20 unit SQ ACDIN 10/27/16 Sertraline HCl [Zoloft -] 50 mg PO DAILY #30 tablet 10/28/16 - Diagnosis (1) Alcohol dependence with uncomplicated withdrawal Status: Acute (2) Cocaine dependence Status: Acute Qualifiers: Substance use status: uncomplicated Qualified Code(s): F14.20 - Cocaine dependence, uncomplicated (3) Hypertension Status: Acute Qualifiers: Hypertension type: essential hypertension Qualified Code(s): I10 - Essential (primary) hypertension (4) Opioid dependence on agonist therapy Status: Acute (5) Asthma Status: Chronic Qualifiers: Asthma severity: mild intermittent Asthma complication type: uncomplicated Qualified Code(s): J45.20 - Mild intermittent asthma, uncomplicated (6) Diabetes mellitus, type II, insulin dependent Status: Chronic (7) MDD (major depressive disorder) Status: Acute (8) Substance induced mood disorder Status: Acute - AMA Did Patient Leave Against Medical Advice: No
== END 2016-11-02 10:21 | disposition home or self-care (01) | DRG 773 ==
LOC: YASAS 14:32 → Y3N 10-28 00:46
PROVIDERS: ADMIT Internal Medicine; ATTEND Internal Medicine
PROC: HZ2ZZZZ Detoxification Services for Substance Abuse Treatment (ICD-10-PCS; principal; 2016-11-02)
DX: F11.20 Opioid dependence, uncomplicated (principal); F10.230 Alcohol dependence with withdrawal, uncomplicated; F14.20 Cocaine dependence, uncomplicated; F19.24 Other psychoactive substance dependence with psychoactive substance-induced mood disorder; F33.9 Major depressive disorder, recurrent, unspecified; I10 Essential (primary) hypertension; E11.9 Type 2 diabetes mellitus without complications; Z79.4 Long term (current) use of insulin; J45.20 Mild intermittent asthma, uncomplicated; R76.11 Nonspecific reaction to tuberculin skin test without active tuberculosis
CPT/HCPCS: 36415; 80053; 81003; 85027; 86593; 87389; 93005; 93010